=== PATIENT | female | born 1930 | race Hispanic/Latino ===

== ENCOUNTER → 2017-06-24 | Outpatient (CLI) | payer OTHER ==
[~2017-06-24] MED LIST: AMLO10TA2 PO; FOLI1TAB82 PO; FURO20TA4 PO; TRAM50TA4 PO; VALS1TAB77 PO
== END | disposition home or self-care (01) ==
LOC: SHCH 08:43
PROVIDERS: ATTEND Internal Medicine Cardiovascular Disease
DX: R07.9 Chest pain, unspecified (principal); R06.02 Shortness of breath
CPT/HCPCS: 93306

== ENCOUNTER → 2017-07-02 | Outpatient (CLI) | payer OTHER | END | disposition home or self-care (01) | LOC: SHCH 10:00 | PROVIDERS: ATTEND Internal Medicine Cardiovascular Disease | DX: I65.23 Occlusion and stenosis of bilateral carotid arteries (principal) | CPT/HCPCS: 93880 ==

== ENCOUNTER 2018-02-05 11:22 | Inpatient (IN) | payer OTHER ==
[~2018-02-05] VITALS: Ht 152.4 cm; Wt 64.9 kg
[~2018-02-05 11:22] MED LIST changes: -AMLO10TA2 PO; +AMLO10TA6 PO
[2018-02-05 12:04] LABS: BASOPHILS % (AUTO) 0.5 % (0.0-5.0); EOSINOPHILS % (AUTO) 1.9 % (0.0-8.0); LYMPHOCYTES % (AUTO) 15.2 % (21.0-51.0); MEAN CORPUSCULAR HEMOGLOBIN 29.6 pg (27.0-33.0); MEAN CORPUSCULAR HGB CONC 33.1 g/dL (32.0-36.0); MEAN CORPUSCULAR VOLUME 89.4 fL (79-99); MONOCYTES % (AUTO) 8.5 % (3.0-13.0); NEUTROPHILS % (AUTO) 73.9 % (40.0-77.0); PLATELET COUNT (AUTO) 193 K/uL (130-400); RED BLOOD CELL COUNT(AUTO) 3.58 MIL/uL (4.00-5.50); RED CELL DISTRIBUTION WIDTH 14.1 % (11.0-15.5); WHITE BLOOD COUNT (AUTO) 8.9 K/uL (4.8-10.8)
[2018-02-05 12:16] LABS: BILIRUBIN,URINE NEGATIVE (NEGATIVE); COLOR,URINE YELLOW (YELLOW); GLUCOSE, URINE (UA) NEGATIVE (NEGATIVE); KETONES,URINE NEGATIVE (NEGATIVE); LEUKOCYTE ESTERASE ,URINE TRACE (NEGATIVE); NITRATE,URINE NEGATIVE (NEGATIVE); OCCULT BLOOD,URINE NEGATIVE (NEGATIVE); PH,URINE 5.5 (5.0-8.0); PROTEIN,URINE TRACE (NEGATIVE); UROBILINOGEN,URINE 0.2 mg/dL (0.2-1.0)
[2018-02-05 12:17] LABS: CREATININE 1.5 mg/dL (0.5-1.5); POTASSIUM 5.3 mmol/L (3.5-5.1)
[2018-02-05 12:23] LABS: ALBUMIN 3.7 g/dL (3.5-5.0); BILIRUBIN,TOTAL 0.4 mg/dL (0.2-1.0); TOTAL PROTEIN, SERUM 7.4 g/dL (6.0-8.3)
[2018-02-05 12:29] LABS: APPEARANCE,URINE SLIGHTLY CLOUDY (CLEAR)
[2018-02-05 12:29] LABS: INR 0.97 (0.85-1.15); PARTIAL THROMBOPLASTIN TIME 23.8 SEC (26.3-35.5); PROTHROMBIN TIME 10.2 SEC (9.6-11.6)
[2018-02-05 12:30] LABS: BACTERIA,URINE Few /HPF (None Seen); SQUAMOUS EPITHELIAL CELL,UR 30-50 /HPF (0-2); WBC,URINE 0-1 /HPF (0-1)
[2018-02-05 12:31] LABS: RBC,URINE None Seen /HPF (0-1)
[2018-02-05 23:45] VITALS: BP 124/80
[2018-02-06] MEDS: MORPHINE SULFATE 2 MG/ML 1ML SYG IVP PRN ×2 (00:17→08:46)
[2018-02-06] MEDS ORDERED: CLON0.1T PO (00:57)
[2018-02-06] MEDS ORDERED: METO-391 PO (00:57)
[2018-02-06] MEDS ORDERED: LATA7.5D OP (00:57)
[2018-02-06] MEDS ORDERED: ISOS30TA6 PO (00:57)
[2018-02-06 04:00] VITALS: BP 130/62
[2018-02-06 08:50] VITALS: BP 138/67
[2018-02-06] MEDS ORDERED: PNEUMOCOCCAL VACCINE POLYVALENT 0.5 ML/VIAL [PPV] IM SCH (09:30)
[2018-02-06] MEDS ORDERED: IOHEXOL 350 MG/ML 100ML INFUS..BTL IV ONE (12:12)
[2018-02-06 12:15] VITALS: BP 142/62
[2018-02-06] MEDS ORDERED: LACTULOSE 20 GM/30 ML UDCUP PO SCH (15:00)
[2018-02-06] MEDS ORDERED: MAGNESIUM CITRATE 296 ML SOLUTION PO ONE (15:00)
[2018-02-06] MEDS ORDERED: PEG 3350/NA SULF,BICARB,CL/KCL 4000 ML SOLN PO ONE (16:30)
[2018-02-06 16:37] VITALS: BP 134/58
[2018-02-06] MEDS ORDERED: BISACODYL 5 MG TABLET.DR PO SCH (18:30)
[2018-02-06 20:10] VITALS: BP 134/66
[2018-02-07] VITALS (21 sets, daily range): BP systolic 117–165; BP diastolic 38–108
[2018-02-07 05:16] LABS: BASOPHILS % (AUTO) 0.5 % (0.0-5.0); EOSINOPHILS % (AUTO) 1.2 % (0.0-8.0); HEMATOCRIT 31.6 % (36-48); LYMPHOCYTES % (AUTO) 15.1 % (21.0-51.0); MEAN CORPUSCULAR HEMOGLOBIN 30.4 pg (27.0-33.0); MEAN CORPUSCULAR VOLUME 89.4 fL (79-99); MONOCYTES % (AUTO) 9.2 % (3.0-13.0); NUCLEATED RED BLOOD CELLS 0.1 % (0.0-0.19); PLATELET COUNT (AUTO) 185 K/uL (130-400); RED BLOOD CELL COUNT(AUTO) 3.53 MIL/uL (4.00-5.50); RED CELL DISTRIBUTION WIDTH 13.7 % (11.0-15.5); WHITE BLOOD COUNT (AUTO) 7.7 K/uL (4.8-10.8)
[2018-02-07 05:31] LABS: ALBUMIN 3.3 g/dL (3.5-5.0); BILIRUBIN,TOTAL 0.4 mg/dL (0.2-1.0); POTASSIUM 3.7 mmol/L (3.5-5.1); TOTAL PROTEIN, SERUM 6.7 g/dL (6.0-8.3)
[2018-02-07] MEDS ORDERED: SODIUM CHLORIDE 0.9% 1000ML 1,000 ML IV ONE (11:56)
[2018-02-07] MEDS ORDERED: LIDOCAINE HCL-MPF 2% 5ML VIAL ONE (12:12)
[2018-02-07] MEDS ORDERED: PROPOFOL 10 MG/ML 20ML VIAL IV ONE (12:12)
[2018-02-07] MEDS: SODIUM CHLORIDE 0.9% 1000ML 1,000 ML IV SCH (19:22)
[2018-02-08] VITALS (19 sets, daily range): BP systolic 133–187; BP diastolic 64–99
[2018-02-08] MEDS: MORPHINE SULFATE 2 MG/ML 1ML SYG IVP PRN (03:06)
[2018-02-08] MEDS: SODIUM CHLORIDE 0.9% 1000ML 1,000 ML IV SCH ×2 (06:14→15:15)
[2018-02-08] MEDS ORDERED: IOHEXOL-350 75 ML VIAL IV ONE (08:15)
[2018-02-08] MEDS ORDERED: DIATR MEGLU/DIATRIZOATE SODIUM 30 ML BOTTLE ONE (08:15)
[2018-02-08] MEDS: ACETAMINOPHEN 325 MG TAB PO PRN (14:52)
[2018-02-08] MEDS ORDERED: BENA20TA10 PO (15:08)
[2018-02-08] MEDS ORDERED: PROPOFOL 10 MG/ML 20ML VIAL IV ONE (20:08)
[2018-02-09] VITALS (11 sets, daily range): BP systolic 143–178; BP diastolic 72–118
[2018-02-09] MEDS: ACETAMINOPHEN 325 MG TAB PO PRN ×2 (04:17→16:51)
[2018-02-09] MEDS: SODIUM CHLORIDE 0.9% 1000ML 1,000 ML IV SCH (08:46)
[2018-02-09] MEDS ORDERED: LIDOCAINE HCL MPF 1% 5ML VIAL ONE ×2 (09:53→11:35)
[2018-02-09] MEDS ORDERED: FENTANYL CITRATE PF 50 MCG/1 ML 2ML VIAL ONE (11:17)
[2018-02-09] MEDS ORDERED: MIDAZOLAM HCL 1 MG/ML 2ML VIAL ONE (11:17)
== END 2018-02-09 18:30 | disposition home or self-care (01) | DRG 442 ==
LOC: EDH 11:22 → EDHIP 15:12 → OBSVTOIN 15:12 → 3BH 02-06
PROVIDERS: ADMIT Internal Medicine; ATTEND Internal Medicine
PROC: 0DBK8ZZ Excision of Ascending Colon, Via Natural or Artificial Opening Endoscopic (ICD-10-PCS; 2018-02-07)
PROC: 0DJ08ZZ Inspection of Upper Intestinal Tract, Via Natural or Artificial Opening Endoscopic (ICD-10-PCS; principal; 2018-02-08)
DX: K76.9 Liver disease, unspecified (principal); J90 Pleural effusion, not elsewhere classified; K86.9 Disease of pancreas, unspecified; K57.30 Diverticulosis of large intestine without perforation or abscess without bleeding; D64.9 Anemia, unspecified; E11.9 Type 2 diabetes mellitus without complications; I10 Essential (primary) hypertension; K21.0 Gastro-esophageal reflux disease with esophagitis; K44.9 Diaphragmatic hernia without obstruction or gangrene; D50.9 Iron deficiency anemia, unspecified; K64.1 Second degree hemorrhoids; K29.00 Acute gastritis without bleeding; K63.5 Polyp of colon; E03.9 Hypothyroidism, unspecified; R16.0 Hepatomegaly, not elsewhere classified; K59.00 Constipation, unspecified; N32.9 Bladder disorder, unspecified; Z96.653 Presence of artificial knee joint, bilateral; Z98.41 Cataract extraction status, right eye; Z90.710 Acquired absence of both cervix and uterus; Z83.3 Family history of diabetes mellitus; Z82.49 Family history of ischemic heart disease and other diseases of the circulatory system; Z80.3 Family history of malignant neoplasm of breast; Z80.42 Family history of malignant neoplasm of prostate
CPT/HCPCS: 36415; 43235; 45385; 47000; 71045; 74170; 74176; 74178; 77012; 80053; 81001; 82105; 82378; 82550; 83690; 85025; 85610; 85730; 88305; 88307; 93005; 99152; J2250; J2704; J3010; J3490; J7030; Q9963; Q9967

== ENCOUNTER 2018-02-25 18:28 | Emergency (ER) | payer OTHER ==
[~2018-02-25 18:28] MED LIST changes: +BENA20TA10 PO; +CLON0.1T PO; -FOLI1TAB82 PO; -FURO20TA4 PO; +ISOS30TA6 PO; +LATA7.5D OP; +METO-391 PO; -TRAM50TA4 PO; -VALS1TAB77 PO
[2018-02-25 18:58] LABS: BASOPHILS % (AUTO) 0.4 % (0.0-5.0); EOSINOPHILS % (AUTO) 0.5 % (0.0-8.0); HEMATOCRIT 30.2 % (36-48); LYMPHOCYTES % (AUTO) 7.8 % (21.0-51.0); MEAN CORPUSCULAR HEMOGLOBIN 29.4 pg (27.0-33.0); MEAN CORPUSCULAR HGB CONC 32.1 g/dL (32.0-36.0); MEAN CORPUSCULAR VOLUME 91.5 fL (79-99); MONOCYTES % (AUTO) 9.2 % (3.0-13.0); NEUTROPHILS % (AUTO) 82.1 % (40.0-77.0); NUCLEATED RED BLOOD CELLS 0.1 % (0.0-0.19); PLATELET COUNT (AUTO) 211 K/uL (130-400); RED CELL DISTRIBUTION WIDTH 15.3 % (11.0-15.5); WHITE BLOOD COUNT (AUTO) 10.2 K/uL (4.8-10.8)
[2018-02-25 19:14] LABS: CREATININE 1.2 mg/dL (0.5-1.5); POTASSIUM 4.5 mmol/L (3.5-5.1)
[2018-02-25 19:19] LABS: BILIRUBIN,TOTAL 0.4 mg/dL (0.2-1.0); TOTAL PROTEIN, SERUM 6.5 g/dL (6.0-8.3)
[2018-02-25 19:26] LABS: INR 1.03 (0.85-1.15); PARTIAL THROMBOPLASTIN TIME 25.2 SEC (26.3-35.5); PROTHROMBIN TIME 10.8 SEC (9.6-11.6)
[2018-02-25] MEDS ORDERED: APIXABAN 2.5 MG TABLET PO ONE (21:53)
== END 2018-02-25 22:48 | disposition home or self-care (01) ==
LOC: EDH 18:28
DX: I82.492 Acute embolism and thrombosis of other specified deep vein of left lower extremity (principal); C25.9 Malignant neoplasm of pancreas, unspecified; R06.02 Shortness of breath; E11.9 Type 2 diabetes mellitus without complications; I10 Essential (primary) hypertension; E07.9 Disorder of thyroid, unspecified; Z90.710 Acquired absence of both cervix and uterus; Z98.890 Other specified postprocedural states
CPT/HCPCS: 36415; 71045; 80053; 82550; 83880; 84484; 85025; 85610; 85730; 93005; 93971; 99291

== ENCOUNTER 2018-03-16 07:39 | Inpatient (IN) | payer OTHER ==
[2018-03-16] VITALS (26 sets, daily range): BP systolic 61–118; BP diastolic 32–63
[~2018-03-16] VITALS: Ht 152.4 cm; Wt 73.5 kg
[2018-03-16] MEDS ORDERED: ALBUMIN (HUMAN) 25% 100 ML IV ONE (08:00)
[2018-03-16 08:09] LABS: ABG BASE EXCESS -17.7 mmol/L (-2.0-3.0); ABG HCO3 14.1 mmol/L (21.0-28.0); ABG PCO2 64 mmHg (32-45)
[2018-03-16 08:16] LABS: BASOPHILS % (AUTO) 0.8 % (0.0-5.0); EOSINOPHILS % (AUTO) 0.1 % (0.0-8.0); HEMATOCRIT 31.9 % (36-48); LYMPHOCYTES % (AUTO) 3.1 % (21.0-51.0); MEAN CORPUSCULAR HEMOGLOBIN 27.8 pg (27.0-33.0); MEAN CORPUSCULAR HGB CONC 29.7 g/dL (32.0-36.0); MEAN CORPUSCULAR VOLUME 93.6 fL (79-99); MONOCYTES % (AUTO) 3.8 % (3.0-13.0); NEUTROPHILS % (AUTO) 92.2 % (40.0-77.0); NUCLEATED RED BLOOD CELLS 0.2 % (0.0-0.19); PLATELET COUNT (AUTO) 494 K/uL (130-400); RED BLOOD CELL COUNT(AUTO) 3.41 MIL/uL (4.00-5.50); RED CELL DISTRIBUTION WIDTH 15.4 % (11.0-15.5); WHITE BLOOD COUNT (AUTO) 15.2 K/uL (4.8-10.8)
[2018-03-16 08:23] LABS: ALBUMIN 2.5 g/dL (3.5-5.0); BILIRUBIN,DIRECT 0.1 mg/dL (0.0-0.3); BILIRUBIN,TOTAL 0.3 mg/dL (0.2-1.0); TOTAL PROTEIN, SERUM 7.1 g/dL (6.0-8.3)
[2018-03-16 08:24] LABS: POTASSIUM 6.9 mmol/L (3.5-5.1)
[2018-03-16] MEDS ORDERED: SODIUM BICARB [NEONATAL] 4.2% 10ML SYG ONE ×2 (08:28→09:33)
[2018-03-16] MEDS ORDERED: CALCIUM GLUCONATE 1 GM/10 ML VIAL IV ONE (08:29)
[2018-03-16] MEDS ORDERED: DEXTROSE 50%-WATER 50 ML DISP.SYRIN IV ONE (08:29)
[2018-03-16] MEDS ORDERED: INSULIN HUMULIN R 100 UNIT/ML 3ML ONE (08:30)
[2018-03-16 08:31] LABS: INR 1.08 (0.85-1.15); PARTIAL THROMBOPLASTIN TIME 30.6 SEC (26.3-35.5); PROTHROMBIN TIME 11.3 SEC (9.6-11.6)
[2018-03-16] MEDS ORDERED: SODIUM CHLORIDE 0.9% 50 ML IV ONE ×3 (08:32→09:51)
[2018-03-16] MEDS ORDERED: SODIUM BICARB 50MEQ 50ML VIAL ONE (08:33)
[2018-03-16 08:34] LABS: APPEARANCE,URINE Turbid (CLEAR); BILIRUBIN,URINE Small (NEGATIVE); COLOR,URINE Dark Yellow (YELLOW); GLUCOSE, URINE (UA) 250 mg/dL (NEGATIVE); KETONES,URINE Trace mg/dL (NEGATIVE); LEUKOCYTE ESTERASE ,URINE Small (NEGATIVE); NITRATE,URINE Negative (NEGATIVE); OCCULT BLOOD,URINE Negative (NEGATIVE); PROTEIN,URINE POS 2+ (NEGATIVE)
[2018-03-16 08:50] LABS: B-TYPE NATRIURETIC PEPTIDE 515 pg/mL (0-100)
[2018-03-16 08:59] LABS: BACTERIA,URINE Few /HPF (None Seen); RBC,URINE 0-1 /HPF (0-1); SQUAMOUS EPITHELIAL CELL,UR 30-50 /HPF (0-2)
[2018-03-16 09:01] LABS: AMORPHOUS SEDIMENT,UR Moderate /LPF (None Seen)
[2018-03-16] MEDS ORDERED: DEXTROSE 5 %-0.45 % NACL 0 ML IV ONE (09:34)
[2018-03-16] MEDS: SODIUM BICARB 8.4% 50ML SYRING 150 MEQ in DEXTROSE 5%-WATER 1,000 ML IVP SCH ×2 (10:00→20:58)
[2018-03-16 10:20] LABS: ABG BASE EXCESS -12.6 mmol/L (-2.0-3.0); ABG HCO3 14.6 mmol/L (21.0-28.0); ABG OXYGEN SATURATION 98.8 % (95.0-99.0); ABG PCO2 39 mmHg (32-45)
[2018-03-16] MEDS ORDERED: PROPOFOL 1000 MG/100 ML 100 ML IV ONE (10:51)
[2018-03-16] MEDS ORDERED: ROCURONIUM BROMIDE 10MG/1ML 5ML VL IV ONE (12:00)
[2018-03-16] MEDS ORDERED: ETOMIDATE 2 MG/ML 10 ML VIAL IVP ONE (12:00)
[2018-03-16] MEDS ORDERED: PROPOFOL 1000 MG/100 ML IV PRN (19:15)
[2018-03-16] MEDS: PROPOFOL 1000 MG/100 ML 100 ML IV PRN (20:22)
[2018-03-16] MEDS: NOREPINEPHRINE 4MG/NS 250ML 250 ML IV SCH (22:26)
[2018-03-17] VITALS (28 sets, daily range): BP systolic 82–135; BP diastolic 42–91
[2018-03-17 04:15] LABS: HEMATOCRIT 28.5 % (36-48); MEAN CORPUSCULAR HEMOGLOBIN 29.7 pg (27.0-33.0); MEAN CORPUSCULAR HGB CONC 33.8 g/dL (32.0-36.0); MEAN CORPUSCULAR VOLUME 87.8 fL (79-99); NUCLEATED RED BLOOD CELLS 1.2 % (0.0-0.19); PLATELET COUNT (AUTO) 476 K/uL (130-400); RED BLOOD CELL COUNT(AUTO) 3.24 MIL/uL (4.00-5.50); RED CELL DISTRIBUTION WIDTH 14.8 % (11.0-15.5); WHITE BLOOD COUNT (AUTO) 9.6 K/uL (4.8-10.8)
[2018-03-17 04:22] LABS: INR 1.09 (0.85-1.15); PARTIAL THROMBOPLASTIN TIME 29.8 SEC (26.3-35.5); PROTHROMBIN TIME 11.4 SEC (9.6-11.6)
[2018-03-17 04:27] LABS: ABG BASE EXCESS -3.6 mmol/L (-2.0-3.0); ABG HCO3 19.4 mmol/L (21.0-28.0); ABG PCO2 30 mmHg (32-45)
[2018-03-17 04:36] LABS: ALBUMIN 2.3 g/dL (3.5-5.0); BILIRUBIN,TOTAL 0.3 mg/dL (0.2-1.0); CREATININE 6.4 mg/dL (0.5-1.5); POTASSIUM 5.1 mmol/L (3.5-5.1); TOTAL PROTEIN, SERUM 5.9 g/dL (6.0-8.3)
[2018-03-17 04:43] LABS: BAND NEUTROPHILS % (MANUAL) 36 % (0-2); LYMPHOCYTES % (MANUAL) 21 % (22-44); MAN.DIFF COMMENT-IMPRESSION MANUAL DIFFERENTIAL; MONOCYTES % (MANUAL) 7 % (2-9); PLATELET MORPHOLOGY COMMENT INCREASED; SEGMENTED NEUTROPHILS % 36 % (40-70)
[2018-03-17] MEDS: PROPOFOL 1000 MG/100 ML 100 ML IV PRN ×3 (05:27→23:49)
[2018-03-17] MEDS: NOREPINEPHRINE 4MG/NS 250ML 250 ML IV SCH ×2 (06:28→14:50)
[2018-03-17] MEDS: SODIUM BICARB 8.4% 50ML SYRING 150 MEQ in DEXTROSE 5%-WATER 1,000 ML IVP SCH ×2 (11:13→20:34)
[2018-03-17] MEDS: ZOSYN 3.375GM+NS 50ML 50 ML IV SCH (20:22)
[2018-03-18] VITALS (28 sets, daily range): BP systolic 69–131; BP diastolic 39–60
[2018-03-18 03:47] LABS: HEMATOCRIT 26.8 % (36-48); MEAN CORPUSCULAR HEMOGLOBIN 28.4 pg (27.0-33.0); MEAN CORPUSCULAR HGB CONC 32.3 g/dL (32.0-36.0); MEAN CORPUSCULAR VOLUME 87.9 fL (79-99); PLATELET COUNT (AUTO) 357 K/uL (130-400); RED BLOOD CELL COUNT(AUTO) 3.05 MIL/uL (4.00-5.50); RED CELL DISTRIBUTION WIDTH 14.8 % (11.0-15.5); WHITE BLOOD COUNT (AUTO) 11.9 K/uL (4.8-10.8)
[2018-03-18 04:23] LABS: CREATININE 6.3 mg/dL (0.5-1.5); POTASSIUM 4.3 mmol/L (3.5-5.1)
[2018-03-18] MEDS: PROPOFOL 1000 MG/100 ML 100 ML IV PRN (08:29)
[2018-03-18] MEDS: SODIUM BICARB 8.4% 50ML SYRING 150 MEQ in DEXTROSE 5%-WATER 1,000 ML IVP SCH ×2 (08:29→20:21)
[2018-03-18] MEDS: NOREPINEPHRINE 4MG/NS 250ML 250 ML IV SCH (08:29)
[2018-03-18] MEDS: ZOSYN 3.375GM+NS 50ML 50 ML IV SCH ×2 (08:33→21:36)
[2018-03-18] MEDS ORDERED: FAMOTIDINE/PF 20 MG/2 ML VIAL IV SCH (09:00)
[2018-03-18] MEDS ORDERED: PANTOPRAZOLE 40 MG/VIAL IVP SCH (09:00)
[2018-03-18 10:29] LABS: ABG BASE EXCESS 5.4 mmol/L (-2.0-3.0); ABG HCO3 28.8 mmol/L (21.0-28.0); ABG OXYGEN SATURATION 95.8 % (95.0-99.0); ABG PCO2 38 mmHg (32-45)
[2018-03-19] VITALS (10 sets, daily range): BP systolic 95–106; BP diastolic 36–53
[2018-03-19] MEDS: ZOSYN 3.375GM+NS 50ML 50 ML IV SCH (07:52)
[2018-03-19] MEDS: SODIUM BICARB 8.4% 50ML SYRING 150 MEQ in DEXTROSE 5%-WATER 1,000 ML IVP SCH (07:52)
[2018-03-19] MEDS ORDERED: PHARMACY COMMUNICATION MISC SCH (08:00)
[2018-03-19] MEDS ORDERED: GLYCOPYRROLATE 1 MG/5 ML SYRINGE IV PRN (09:45)
[2018-03-19] MEDS ORDERED: LORAZEPAM 2 MG/ML 1 ML VIAL IM PRN (09:45)
[2018-03-19] MEDS: HYDROMORPHONE 1 MG/1 ML AMP IVP PRN ×2 (12:15→12:41)
[2018-03-19] MEDS ORDERED: HYDROMORPHONE 1 MG/1 ML AMP ONE (15:05)
== END 2018-03-19 14:49 | disposition hospice, inpatient (51) | DRG 871 ==
LOC: EDH 07:39 → EDHIP 09:58 → 2CH 11:13
PROVIDERS: ADMIT Internal Medicine; ATTEND Internal Medicine
PROC: 5A1945Z Respiratory Ventilation, 24-96 Consecutive Hours (ICD-10-PCS; principal; 2018-03-16)
PROC: 0BH17EZ Insertion of Endotracheal Airway into Trachea, Via Natural or Artificial Opening (ICD-10-PCS; 2018-03-16)
PROC: 5A09357 Assistance with Respiratory Ventilation, Less than 24 Consecutive Hours, Continuous Positive Airway Pressure (ICD-10-PCS; 2018-03-16)
DX: A41.9 Sepsis, unspecified organism (principal); J96.01 Acute respiratory failure with hypoxia; J18.9 Pneumonia, unspecified organism; N17.0 Acute kidney failure with tubular necrosis; E87.2 Acidosis; J90 Pleural effusion, not elsewhere classified; R18.8 Other ascites; C25.9 Malignant neoplasm of pancreas, unspecified; C78.7 Secondary malignant neoplasm of liver and intrahepatic bile duct; E66.9 Obesity, unspecified; D64.9 Anemia, unspecified; E11.9 Type 2 diabetes mellitus without complications; E78.5 Hyperlipidemia, unspecified; E87.5 Hyperkalemia; E87.70 Fluid overload, unspecified; I10 Essential (primary) hypertension; Z51.5 Encounter for palliative care; Z66 Do not resuscitate; H26.9 Unspecified cataract; C55 Malignant neoplasm of uterus, part unspecified; Z68.31 Body mass index [BMI] 31.0-31.9, adult; Z90.710 Acquired absence of both cervix and uterus
CPT/HCPCS: 31500; 36415; 36600; 71045; 80048; 80053; 80076; 81001; 82270; 82435; 82550; 82803; 82947; 82948; 83605; 83690; 83880; 84132; 84295; 84484; 85018; 85025; 85027; 85610; 85730; 87040; 87804; 93005; 94002; 94003; 94660; 99291; C9113; J0610; J1170; J1815; J2543; J2704; J3490; J7042; J7070; P9046